=== PATIENT | female | born 1995 | race Caucasian/White ===

== ENCOUNTER 2019-01-20 07:24 | Emergency (ER) | payer SELFPAY ==
[2019-01-20] MEDS ORDERED: Ibuprofen 200 MG TAB ONE (07:50)
[2019-01-20 07:52] LABS: Bilirubin Small (Negative); Blood, Urine Small (Negative); Clarity Clear (Clear); Glucose, Urine (Dipstick) Negative (Negative); Leukocyte Negative (Negative); Nitrite Negative (Negative); Protein, Urine (Dipstick) Trace mg/dL (Neg-Trace); Urobilinogen 0.2 mg/dL (Less than 2)
[2019-01-20 07:58] LABS: Bacteria/HPF Rare-Few HPF (None Seen); Squamous Epithelial 0-3 HPF (0-3); WBC/HPF 0-3 HPF (0-3)
[2019-01-20 07:59] LABS: Pregnancy Test - Urine (BHCG) Negative (Negative); Pregu Control Background? CLEAR/WHITE (CLR/WHITE); Pregu Control Bar Appear? YES (CONTROL BAR)
[2019-01-20 08:05] LABS: Amphetamine Not Detected (NotDetected); Barbiturates Screen Not Detected (NotDetected); Benzodiazepine Screen Not Detected (NotDetected); Cocaine Metabolite Screen Not Detected (NotDetected); Medtox Control Line Valid? VALID (VALID); Methadone Not Detected (NotDetected); Methamphetamine Not Detected (NotDetected); Opiate Screen Not Detected (NotDetected); Oxycodone Screen Not Detected (NotDetected); Phencyclidine (PCP) Not Detected (NotDetected); THC/Cannabinoid Screen Not Detected (NotDetected); Tricyclic Screen Not Detected (NotDetected)
[2019-01-20] MEDS ORDERED: Morphine 4 MG/ML VIAL ONE (08:41)
[2019-01-20] MEDS ORDERED: Ketorolac Tromethamine 30 MG/ML VIAL ONE (08:42)
[2019-01-20] MEDS ORDERED: diphenhydrAMINE 50 MG/ML VIAL ONE (08:42)
[2019-01-20] MEDS ORDERED: Morphine 10 MG/ML VIAL ONE (08:43)
[2019-01-20] MEDS ORDERED: Tamsulosin HCl 0.4 MG CAP PO SCH (09:00)
[2019-01-20] MEDS ORDERED: diphenhydrAMINE 50 MG/ML VIAL IVP SCH (09:00)
--- NOTE | 2019-01-20 09:15 | CT ---
CT ABDOMEN AND PELVIS WITHOUT IV CONTRAST: Indications: Left flank pain. FINDINGS: Images through the lung bases show a small 3 mm nodule in the right lung base. This probably represen ts a noncalcified granuloma. There is a calcified granuloma in the anterior right lung base measuring 5 mm. Findings would suggest prior granulomatous process. Liver, spleen and pancreas unremarkable. Review of urinary tract reveals moderate left hydronephrosis. There is a 3 mm calculus in the distal left ureter proximal to the UVJ. Right urinary tract unremarkable. The bladder is contracted and not adequately evaluated. Bowel loops unremarkable. Appendix appears normal. Images through the pelvis show unremarkable uterus and adnexa. Left ovarian follicles appear within n ormal range. Large amount of stool in the rectum. IMPRESSION: 3 mm calculus in the distal left ureter producing mild left hydronephrosis. POS: [facility]
== END 2019-01-20 09:34 | disposition home or self-care (01) ==
LOC: BURERS 07:24
DX: N20.0 Calculus of kidney (principal)
CPT/HCPCS: 74176; 80306; 81003; 81015; 81025; 96374; 96375; J1200; J1885; J2270

== ENCOUNTER 2019-01-23 13:37 | Emergency (ER) | payer SELFPAY | END 2019-01-23 14:45 | disposition home or self-care (01) | LOC: BURERS 13:37 | DX: N23 Unspecified renal colic (principal) | CPT/HCPCS: 99283 ==

== ENCOUNTER 2019-08-21 02:30 | Emergency (ER) | payer SELFPAY ==
[2019-08-21] MEDS ORDERED: hydrOXYzine 25 MG TAB ONE (02:56)
== END 2019-08-21 03:00 | disposition home or self-care (01) ==
LOC: BURERS 02:30
DX: M94.0 Chondrocostal junction syndrome [Tietze] (principal); J30.2 Other seasonal allergic rhinitis; F41.9 Anxiety disorder, unspecified; F17.210 Nicotine dependence, cigarettes, uncomplicated
CPT/HCPCS: 99284

== ENCOUNTER 2021-03-28 04:20 | Emergency (ER) | payer MEDICAID ==
[2021-03-28 04:53] LABS: Bilirubin Small (Negative); Blood, Urine Negative (Negative); Clarity Clear (Clear); Glucose, Urine (Dipstick) Negative (Negative); Ketone, Urine 80 mg/dL (Negative); Leukocyte Negative (Negative); Nitrite Negative (Negative); Protein, Urine (Dipstick) Negative (Neg-Trace); Specific Gravity, Urine 1.025 (1.005-1.030); Urobilinogen 0.2 mg/dL (Less than 2); pH, Urine 5.5 (5.0-9.0)
[2021-03-28 04:54] LABS: Pregu Control Background? CLEAR/WHITE (CLR/WHITE); Pregu Control Bar Appear? YES (CONTROL BAR); Specific Gravity 1.025 (1.002-1.036)
[2021-03-28 04:56] LABS: Pregnancy Test - Urine (BHCG) Negative (Negative)
[2021-03-28 05:12] LABS: Amphetamine Not Detected (NotDetected); Barbiturates Screen Not Detected (NotDetected); Benzodiazepine Screen Not Detected (NotDetected); Cocaine Metabolite Screen Not Detected (NotDetected); Medtox Control Line Valid? VALID (VALID); Methadone Not Detected (NotDetected); Methamphetamine Not Detected (NotDetected); Opiate Screen Not Detected (NotDetected); Oxycodone Screen Not Detected (NotDetected); Phencyclidine (PCP) Not Detected (NotDetected); THC/Cannabinoid Screen Not Detected (NotDetected); Tricyclic Screen Not Detected (NotDetected)
[2021-03-28 05:23] LABS: Hemoglobin 14.6 g/dL (12.0-16.0); Mean Corpuscular HGB CONC 35.5 g/dL (32.0-36.0); Mean Corpuscular Hemoglobin 33.8 pg (27.0-31.0); Mean Corpuscular Volume 95.2 fL (78.0-98.0); Mean Platelet Volume 8.1 fL (7.4-10.4); Platelet Count 281 thou/uL (130-400); RBC Distribution Width 10.3 % (11.5-14.5); Red Blood Cell (RBC) Count 4.31 mill/uL (4.20-5.40); White Blood Cell (WBC) Count 11.4 thou/uL (4.8-10.8)
[2021-03-28 05:32] LABS: ALT (SGPT) 9 U/L (8-55); AST (SGOT) 18 U/L (5-34); Albumin 4.5 g/dL (3.5-5.0); Alkaline Phosphatase 50 U/L (40-110); Anion Gap 15 mmol/L (10-20); BUN (Urea Nitrogen) 8 mg/dL (7.0-18.7); Bilirubin, Total 0.7 mg/dL (0.2-1.2); Calc. Creatinine Clearance 0 mL/min (70-130); Calcium 9.6 mg/dL (7.8-10.44); Carbon Dioxide 21 mmol/L (22-29); Chloride 104 mmol/L (98-107); Glucose 81 mg/dL (70-105); Lipase 5 U/L (8-78); Potassium 3.9 mmol/L (3.5-5.1); Protein, Total 7.5 g/dL (6.0-8.3); Sodium 136 mmol/L (136-145)
[2021-03-28 05:51] LABS: Band 6 % (5-11); Lymphocytes 10 % (21-51); MDiff Complete? YES; Monocytes 6 % (0-10); Neutrophil 78 % (42-75); Platelet Morphology Comment Appears Adequate; RBC Morphology Normal
== END 2021-03-28 07:09 | disposition home or self-care (01) ==
LOC: BURERS 04:20
DX: R10.13 Epigastric pain (principal); F17.210 Nicotine dependence, cigarettes, uncomplicated
CPT/HCPCS: 74176; 80053; 80306; 81003; 81025; 83690; 85025